=== PATIENT | male | born 1990 | race Caucasian/White ===

== ENCOUNTER 2022-02-22 21:36 | Emergency (ER) | payer OTHER ==
[2022-02-22] MEDS ORDERED: NAPROXEN500 MG PO (22:27)
[2022-02-22] MEDS ORDERED: CLINDAMYCIN HC300 MG PO (22:27)
== END 2022-02-22 22:35 | disposition home or self-care (01) ==
LOC: ER1 21:36
DX: K04.7 Periapical abscess without sinus (principal); F17.210 Nicotine dependence, cigarettes, uncomplicated
CPT/HCPCS: 96372; 99282; J1885